=== PATIENT | female | born 1990 | race Caucasian/White ===

== ENCOUNTER 2023-10-11 10:29 | Outpatient (CLI) | payer BC, SELFPAY | END 2023-10-11 10:30 | disposition home or self-care (01) | PROVIDERS: PCP Physician Assistant Medical; Visit Provider Family Medicine | DX: R22.1 Localized swelling, mass and lump, neck (principal); Z13.29 Encounter for screening for other suspected endocrine disorder; Z13.6 Encounter for screening for cardiovascular disorders; Z13.1 Encounter for screening for diabetes mellitus | CPT/HCPCS: 80048; 80061; 84443 ==

== ENCOUNTER 2023-11-11 18:10 | Outpatient (CLI) | payer BC, SELFPAY | END 2023-11-11 18:11 | disposition home or self-care (01) | LOC: NFLDUCREF 18:23 | PROVIDERS: PCP Physician Assistant Medical; Visit Provider Physician Assistant | DX: L03.211 Cellulitis of face (principal); B95.7 Other staphylococcus as the cause of diseases classified elsewhere | CPT/HCPCS: 87070; 87186 ==